=== PATIENT | female | born 1980 | race Caucasian/White ===

== ENCOUNTER 2016-10-07 18:30 | Emergency (ER) | payer OTHER ==
[~2016-10-07] VITALS: Ht 157.5 cm; Wt 49.9 kg
[~2016-10-07 18:30] MED LIST: ALPR2TAB2 PO; CLON1TAB; GABA-532 PO; GABA800T PO; LEVE250T2; METH10TA2 PO; PHEN100C4
[2016-10-07] MEDS ORDERED: LEVETIRACETAM (250 MG) 250 MG TABLET PO ONE ×2 (19:52→20:00)
[2016-10-07] MEDS ORDERED: clonazePAM 1 MG TABLET ONE (19:52)
[2016-10-07 19:57] VITALS: BP 116/75
[2016-10-07] MEDS ORDERED: clonazePAM 1 MG TABLET PO ONE (20:00)
== END 2016-10-07 20:01 ==
LOC: ER 18:32
DX: R56.9 Unspecified convulsions (principal); F11.90 Opioid use, unspecified, uncomplicated; I82.409 Acute embolism and thrombosis of unspecified deep veins of unspecified lower extremity; F17.210 Nicotine dependence, cigarettes, uncomplicated; Z88.8 Allergy status to other drugs, medicaments and biological substances
CPT/HCPCS: A4606; Z7610

== ENCOUNTER 2016-10-24 15:25 | Emergency (ER) | payer OTHER ==
[~2016-10-24] VITALS: Ht 162.6 cm; Wt 66.2 kg
[2016-10-24] MEDS ORDERED: LEVETIRACETAM (250 MG) 250 MG TABLET PO ONE ×2 (15:55→16:00)
[2016-10-24 16:04] VITALS: BP 124/69
== END 2016-10-24 16:05 ==
LOC: ER 15:26
DX: G40.909 Epilepsy, unspecified, not intractable, without status epilepticus (principal); F17.210 Nicotine dependence, cigarettes, uncomplicated; F10.20 Alcohol dependence, uncomplicated; Z88.8 Allergy status to other drugs, medicaments and biological substances
CPT/HCPCS: 99283; A4606; Z7610